=== PATIENT | male | born 1970 | race Hispanic/Latino ===

== ENCOUNTER 2018-09-28 15:41 | Emergency (ER) | payer SELFPAY ==
[2018-09-28] MEDS ORDERED: CLINDAMYCIN 600 MG/D5% WATER 50 ML IV ONE (16:41)
[2018-09-28] MEDS ORDERED: SODIUM CHLORIDE 0.9% 1000ML 1,000 ML IV ONE (16:42)
[2018-09-28 16:43] LABS: BASOPHILS % (AUTO) 0.7 % (0.0-5.0); EOSINOPHILS % (AUTO) 2.3 % (0.0-8.0); HEMATOCRIT 42.6 % (42-54); MEAN CORPUSCULAR HEMOGLOBIN 29.7 pg (27.0-33.0); MEAN CORPUSCULAR VOLUME 84.8 fL (79-99); MONOCYTES % (AUTO) 7.9 % (3.0-13.0); NEUTROPHILS % (AUTO) 72.1 % (40.0-77.0); PLATELET COUNT (AUTO) 310 K/uL (130-400); RED BLOOD CELL COUNT(AUTO) 5.02 MIL/uL (4.50-6.20)
[2018-09-28 16:55] LABS: POTASSIUM 3.5 mmol/L (3.5-5.1)
[2018-09-28 17:00] LABS: ALBUMIN 2.8 g/dL (3.5-5.0); BILIRUBIN,TOTAL 0.4 mg/dL (0.2-1.0); TOTAL PROTEIN, SERUM 7.9 g/dL (6.0-8.3)
[2018-09-28] MEDS ORDERED: IOHEXOL-350 75 ML VIAL IV ONE (17:01)
== END 2018-09-28 18:22 | disposition home or self-care (01) ==
LOC: EDH 15:41
DX: L02.214 Cutaneous abscess of groin (principal); E11.9 Type 2 diabetes mellitus without complications
CPT/HCPCS: 36415; 72193; 80053; 83605; 83735; 85025; 96365; 99285; J3490; J7030; Q9967